=== PATIENT | male | born 1940 | race Caucasian/White ===

== ENCOUNTER 2016-07-29 23:40 | Emergency (ER) | payer OTHER, BC ==
[~2016-07-29] VITALS: Ht 172.7 cm; Wt 80.7 kg
[2016-07-30] MEDS ORDERED: VALIUM2 MG PO (00:03)
[2016-07-30] MEDS ORDERED: NORCO 5-325 TA1 EACH PO (00:44)
[2016-07-30 00:54] VITALS: BP 136/77
== END 2016-07-30 00:55 | disposition home or self-care (01) ==
LOC: ER 23:40
DX: S39.012A Strain of muscle, fascia and tendon of lower back, initial encounter (principal); I10 Essential (primary) hypertension; E11.9 Type 2 diabetes mellitus without complications; Z90.49 Acquired absence of other specified parts of digestive tract; Z88.8 Allergy status to other drugs, medicaments and biological substances; X50.0XXA Overexertion from strenuous movement or load, initial encounter; Y93.89 Activity, other specified; Y92.89 Other specified places as the place of occurrence of the external cause; Y99.8 Other external cause status